=== PATIENT | male | born 1930 | race Caucasian/White ===

== ENCOUNTER 2017-07-17 09:59 | Emergency (ER) | payer MEDICARE ==
[~2017-07-17] VITALS: Ht 172.7 cm; Wt 81.8 kg
[2017-07-17] MEDS ORDERED: LEVO75 PO (10:13)
[2017-07-17] MEDS ORDERED: IBUPROFEN 600 MG TABLET PO ONE (10:30)
[2017-07-17 10:43] VITALS: BP 128/75
== END 2017-07-17 11:39 | disposition home or self-care (01) ==
LOC: EMS 10:01
DX: M25.561 Pain in right knee (principal); M25.461 Effusion, right knee; E03.9 Hypothyroidism, unspecified
CPT/HCPCS: 99284

== ENCOUNTER 2019-04-21 08:42 | Emergency (ER) | payer MEDICARE, OTHER ==
[~2019-04-21] VITALS: Ht 175.3 cm; Wt 72.0 kg
[~2019-04-21 08:42] MED LIST: LEVO75 PO
[2019-04-21] MEDS ORDERED: SODIUM CHLORIDE 0.9% 1,000 ML IV ONE (09:00)
[2019-04-21 09:07] LABS: BASOPHILS % (AUTO) 0.1 % (0.0-2.0); EOSINOPHILS % (AUTO) 2.5 % (1.0-6.0); HEMATOCRIT 37.7 % (41-53); HEMOGLOBIN 12.5 g/dL (13.5-17.5); LYMPHOCYTES # (AUTO) 3.1 K/uL (1.0-4.8); LYMPHOCYTES % (AUTO) 27.2 % (22.0-44.0); MEAN CORPUSCULAR HEMOGLOBIN 29.7 pg (26.0-34.0); MEAN CORPUSCULAR HGB CONC 33.2 G/dL (31.0-37.0); MEAN CORPUSCULAR VOLUME 90 fL (80-100); MONOCYTES # (AUTO) 2.1 K/uL (0.1-1.0); MONOCYTES % (AUTO) 18.2 % (2.0-9.0); NEUTROPHILS # (AUTO) 5.9 K/uL (1.8-7.7); PLATELET COUNT (AUTO) 258 K/uL (150-450); RED CELL DISTRIBUTION WIDTH 14.4 % (11.5-14.5)
[2019-04-21 09:20] LABS: INR 1.1 (0.9-1.1); PROTHROMBIN TIME 10.7 SEC (9.4-11.6)
[2019-04-21 09:23] LABS: CALCIUM, TOTAL 8.3 mg/dL (8.8-10.5); CREATININE 1.27 mg/dL (0.60-1.30); POTASSIUM 3.7 mmol/L (3.5-5.1)
[2019-04-21 09:33] LABS: ALBUMIN 3.3 g/dL (3.4-5.0); BILIRUBIN,TOTAL 0.6 mg/dL (0.1-1.0); TOTAL PROTEIN, SERUM 6.3 g/dL (6.4-8.2)
[2019-04-21 10:04] LABS: THYROID STIMULATING HORMONE 2.58 uIU/mL (0.36-3.74)
[2019-04-21 14:01] VITALS: BP 110/64
== END 2019-04-21 14:23 | disposition home or self-care (01) ==
LOC: EMS 08:44
DX: I49.9 Cardiac arrhythmia, unspecified (principal); E03.9 Hypothyroidism, unspecified
CPT/HCPCS: 36415; 71045; 80053; 82550; 83880; 84443; 84484; 85025; 85610; 85730; 93005; 99285; J7030